=== PATIENT | female | born 1980 | race African-American/Black ===

== ENCOUNTER 2020-04-15 12:14 | Emergency (ER) | payer MEDICAID ==
[~2020-04-15] VITALS: Ht 170.2 cm; Wt 148.0 kg
[2020-04-15] MEDS ORDERED: NITROGLYCERIN 0.2MG/HR PATCH TOP ONE (12:30)
[2020-04-15] MEDS ORDERED: ASPIRIN 325MG EC TABLET PO ONE (12:30)
[2020-04-15 13:40] LABS: BASOPHILS % 0.6 % (0.0-2.0); EOSINOPHILS % 8.2 % (0.0-5.0); HEMATOCRIT. 34.4 % (36.0-48.0); HEMOGLOBIN. 10.9 g/dL (12.0-16.0); LYMPHOCYTES % 11.8 % (20.0-50.0); MEAN CORPUSCULAR HEMOGLOBIN 23.3 pg (28.0-32.0); MEAN CORPUSCULAR VOLUME 73.7 fL (81.0-99.0); MEAN PLATELET VOLUME 9.3 fl (7.4-10.4); NEUTROPHILS % 73.4 % (40.0-76.0); PLATELET 244 x1000/uL (130-400); RED BLOOD CELL COUNT 4.67 mill/uL (4.2-5.4)
[2020-04-15 13:45] LABS: CHLORIDE 110 mEq/L (98-107)
[2020-04-15] MEDS ORDERED: DIPHENHYDRAMINE 50MG/ML VIAL IV ONE (14:00)
[2020-04-15 14:02] LABS: HCG SCREEN NEGATIVE
[2020-04-15 15:50] VITALS: BP 229/150
== END 2020-04-15 15:57 | disposition left against medical advice (07) ==
LOC: ER 12:14
DX: R06.02 Shortness of breath (principal); I11.0 Hypertensive heart disease with heart failure; I50.9 Heart failure, unspecified
CPT/HCPCS: 36415; 71045; 78582; 80053; 83880; 84484; 84703; 85025; 93005; 96374; 99285; A9540; A9558; J1200